=== PATIENT | male | born 1980 | race Caucasian/White ===

== ENCOUNTER 2018-08-30 13:23 | Emergency (ER) | payer MEDICARE, MEDICAID ==
[2018-08-30] MEDS ORDERED: TETRACAINE HCL 0.5% OPH SOLN 4 ML OS ONE (14:40)
[2018-08-30] MEDS ORDERED: KETOROLAC TROMETHAMINE 0.45% 4 DROP/0.4 ML DROPERETTE OS ONE (15:20)
[2018-08-30] MEDS ORDERED: ERYTHROMYCIN 0.5% OPH OINT 1 GM UNIT DOSE OS ONE (15:20)
--- NOTE | 2018-08-30 15:24 | ER Document Report ---
ED General - General Chief Complaint: Eye Injury Stated Complaint: LEFT EYE IRRITATION, PAIN Time Seen by Provider: 08/30/18 14:40 Mode of Arrival: Ambulatory Information source: Patient, [facility] Records Notes: 38-year-old male presents with complaint of left eye pain that started just prior to arrival. Patient states that he was cutting down tree branches when he suddenly felt pain in his left eye. He immediately tried to wash out his eyes but did not have any improvement of his pain. Patient denies any contact or glasses use. TRAVEL OUTSIDE OF THE [place] IN LAST 30 DAYS: No - HPI Onset: Just prior to arrival Onset/Duration: Sudden Quality of pain: Achy, Throbbing Severity: Moderate Associated symptoms: None Exacerbated by: Denies Relieved by: Denies Similar symptoms previously: No Recently seen / treated by doctor: No - Related Data Allergies/Adverse Reactions: benzoic acid [Benzoic Acid] Allergy (Verified 04/22/12 01:13) Past Medical History - General Information source: Patient - Social History Smoking Status: Current Every Day Smoker Cigarette use (# per day): Yes - 10 Chew tobacco use (# tins/day): No Smoking Education Provided: Yes - Smoking cessation counseling was provided for 4 minutes at the bedside Frequency of alcohol use: Occasional Drug Abuse: None Lives with: Family Family History: Reviewed & Not Pertinent Patient has suicidal ideation: No Patient has homicidal ideation: No - Medical History Medical History: Negative Renal/ Medical History: Denies: Hx Peritoneal Dialysis Past Surgical History: Reports: Hx Appendectomy - hernia surg x2 as child Review of Systems - Review of Systems Notes: REVIEW OF SYSTEMS: CONSTITUTIONAL : Denies fever, chills, or sweats. Denies recent illness. Denies weight loss, recent hospitalizations. EENT: Denies visual changes, Denies sore throat, oral lesions, difficulty swallowing. CARDIOVASCULAR: Denies chest pain. Denies palpitations. Denies lower extremity edema. RESPIRATORY: Denies cough. Denies shortness of breath, wheezing. GASTROINTESTINAL: Denies abdominal pain or distention. Denies nausea, vomiting , or diarrhea. Denies blood in vomitus, stools, or per rectum. Denies black, tarry stools. Denies constipation. GENITOURINARY: Denies difficulty urinating, painful urination, frequency, blood in urine, testicular pain or penile discharge. MUSCULOSKELETAL: Denies back or neck pain or stiffness. Denies joint pain or swelling. SKIN: Denies rash, lesions or sores. HEMATOLOGIC : Denies easy bruising or bleeding. LYMPHATIC: Denies swollen glands. NEUROLOGICAL: Denies confusion or altered mental status. Denies loss of consciousness. Denies dizziness or lightheadedness. Denies headache. Denies weakness or paralysis. Denies problems difficulty with ambulation, slurred speech. Denies sensory loss, numbness, or tingling. Denies seizures. PSYCHIATRIC: Denies anxiety or stress. Denies depression, suicidal ideation, or Physical Exam - Vital signs Vitals: Temp Pulse Resp BP Pulse Ox 98.0 F 76 16 129/72 H 99 08/30/18 13:44 08/30/18 13:44 08/30/18 13:44 08/30/18 13:44 08/30/18 13:44 Interpretation: Hypertensive - Notes Notes: PHYSICAL EXAMINATION: GENERAL: Well-appearing, well-nourished and in no acute distress. HEAD: Atraumatic, normocephalic. EYES: Pupils equal round and reactive to light, extraocular movements intact, sclera anicteric, conjunctiva are normal. Foreign body noted at the 6 o'clock position of the left cornea. Fluorescein uptake noted after foreign body removal. ENT: Nares patent, oropharynx clear without exudates. Moist mucous membranes. NECK: Normal range of motion, supple without lymphadenopathy LUNGS: Breath sounds clear to auscultation bilaterally and equal. No wheezes rales or rhonchi. HEART: Regular rate and rhythm without murmurs ABDOMEN: Soft, nontender, nondistended abdomen. No guarding, no rebound. No masses appreciated. Musculoskeletal: Normal range of motion, no pitting or edema. No cyanosis. NEUROLOGICAL: Cranial nerves grossly intact. Normal speech, normal gait. Normal sensory, motor exams PSYCH: Normal mood, normal affect. SKIN: Warm, Dry, normal turgor, no rashes or lesions noted. Course - Re-evaluation Re-evalutation: 08/30/18 21:08 38-year-old male presents after foreign body sensation while cutting down tree branches just prior to arrival. Vital signs reviewed upon arrival. Patient does not appear toxic or dehydrated. He is in mild distress secondary to pain. Exam is significant for a small pinpoint foreign body that was easily removed with a Q-tip. Evaluation with floor seen was obtained after foreign body removal and showed a large corneal abrasion. Patient was provided ketorolac and erythromycin while in the emergency department. Ophthalmology follow-up recommended. Patient was evaluated and treated as appropriate for the patient' s presenting symptoms and complaint, with consideration of any critical or life threatening conditions that may be associated with their obtained history and exam as noted above. All results were discussed with patient and... Patient provided the opportunity to ask questions, and express concerns. Patient was educated on treatments based on their presumed diagnosis as noted above. At this time we will discharge the patient with return precautions and follow-up recommendations. Verbal discharge instructions given a the bedside. Medication warnings reviewed. Patient is in agreement with this plan and has verbalized understanding of return precautions. After careful consideration I feel that that patient can be safely discharged from the emergency department, they were advised to followup with a primary care physician in 2-3 days. Dictation on this chart was performed using voice recognition software and may result in unintended grammatical, spelling, syntax or errors. - Vital Signs Vital signs: Temp Pulse Resp BP Pulse Ox 98.6 F 62 18 124/81 98 08/30/18 15:45 08/30/18 15:45 08/30/18 15:45 08/30/18 15:45 08/30/18 15:45 Procedures - Eye Procedure Left Time completed: 15:50 Eye Irrigated w/ Saline (ccs): 100 Foreign body removal: Left Alcaine Drops Administered: Yes - Tetracaine administered Fluorescein applied: Left - Fluoroscene uptake seen at the 6 o'clock position of the cornea. Foreign body noted. Removed with Q-tip. Antibiotic Oinment/Drps Admin: Left eye Slit lamp used: Yes Discharge - Discharge Clinical Impression: Foreign body, Elevated blood pressure reading Corneal abrasion, left Qualifiers: Encounter type: initial encounter Qualified Code(s): S05.02XA - Injury of conjunctiva and corneal abrasion without foreign body, left eye, initial encounter Foreign body in eye Qualifiers: Encounter type: initial encounter Laterality: left Qualified Code(s): T15.92XA - Foreign body on external eye, part unspecified, left eye, initial encounter Condition: Good Disposition: HOME, SELF-CARE Instructions: Corneal Abrasion ([facility]), Corneal Foreign Body ([facility]) Additional Instructions: You were seen tonight for a foreign body in your left eye. This was able to be removed. Please use the erythromycin ophthalmic ointment 4 times daily for the next 5 days. You may use a saline based eyedrop if your having irritation of the eye. Please follow-up with an numerical control machine machinist or generation technologist in the next several days if you have any additional concerns or symptoms. Return for any additional concerns you may have including increasing pain, drainage from the eye, swelling around the eye, changes in vision to the eye, or any other symptoms that are worrisome to you. Prescriptions: Erythromycin Base [Erythromycin Oph 1 Gm Oint Ud] 1 applic OS Q6H 5 Days #1 tube Ketorolac Tromethamine 0.45% [Acuvail 0.45% Oph Soln 0.4 ml/Dropperette] 1 drop OS Q6H 3 Days #1 droperette Forms: Elevated Blood Pressure, Smoking Cessation Education Referrals: ARUN BERNARDO MD [ACTIVE STAFF] - Follow up in 3-5 days
[2018-08-30 15:48] VITALS: BP 124/81
== END 2018-08-30 15:47 | disposition home or self-care (01) ==
LOC: ER 13:23
DX: T15.02XA Foreign body in cornea, left eye, initial encounter (principal); X58.XXXA Exposure to other specified factors, initial encounter; F17.210 Nicotine dependence, cigarettes, uncomplicated; Z71.6 Tobacco abuse counseling; R03.0 Elevated blood-pressure reading, without diagnosis of hypertension
CPT/HCPCS: 99406; 99283; A9270; J3490